=== PATIENT | male | born 1985 | race African-American/Black ===

== ENCOUNTER 2018-09-28 21:13 | Emergency (ER) | payer MEDICAID ==
[~2018-09-28] VITALS: Ht 167.6 cm; Wt 68.0 kg
[2018-09-28] MEDS ORDERED: NKM (21:18)
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
[2018-09-28 21:21] VITALS: BP 125/71
[2018-09-28] MEDS ORDERED: IBUPROFEN600 MG ORAL (21:28)
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
[2018-09-28] MEDS ORDERED: HYDROcodone/Acetamin 5/325 tab ORAL ONE (21:30)
--- NOTE | 2018-09-28 21:46 | NUR ---
ED Nurse Note: pt cleared to be d/c per ERMD, pt discharge and aftercare instruction provided w/ prescription, pt education done via discussion and handout, pt advised to follow up with pcp or return to ed if changes in condition, pt verbalized understanding and agrees with plan, vss, ambulatory w/ steady gait, left w/ all belongings accompanied by girlfriend.
[2018-09-28 21:47] VITALS: BP 121/75
--- NOTE | 2018-09-29 13:54 | Diagnostic Imaging Report ---
Indication: Neck Pain Findings: 3 views of the cervical spine were obtained. There is no acute fracture identified. Alignment is normal. The open-mouth odontoid view shows an intact dens and good alignment of the lateral masses with respect to the body of C2. There is no soft tissue swelling. Impression: Negative cervical spine examination.
== END 2018-09-28 21:48 | disposition home or self-care (01) ==
LOC: EMR 21:37
DX: S16.1XXA Strain of muscle, fascia and tendon at neck level, initial encounter (principal); V43.52XA Car driver injured in collision with other type car in traffic accident, initial encounter; Y92.9 Unspecified place or not applicable; M25.519 Pain in unspecified shoulder
CPT/HCPCS: 72040; 99283